=== PATIENT | male | born 1980 | race Caucasian/White ===

== ENCOUNTER 2017-04-11 01:48 | Emergency (ER) | payer SELFPAY ==
[2017-04-11 06:07] VITALS: BP 126/84
== END 2017-04-11 06:07 | disposition home or self-care (01) ==
LOC: ED 01:48
DX: M94.0 Chondrocostal junction syndrome [Tietze] (principal); R07.89 Other chest pain; V18.0XXA Pedal cycle driver injured in noncollision transport accident in nontraffic accident, initial encounter; Y93.55 Activity, bike riding; Y92.488 Other paved roadways as the place of occurrence of the external cause; Y99.8 Other external cause status
CPT/HCPCS: J1885; J3010